=== PATIENT | female | born 1945 | race Caucasian/White ===

== ENCOUNTER 2016-05-14 06:21 | Day surgery (SDC) | payer OTHER ==
[2016-05-14 07:46] LABS: HEMATOCRIT 47.2 % (37.0-47.0); HEMOGLOBIN 15.2 g/dL (12.0-16.0); MCH 30.7 PG (27-31); MCHC 32.2 g/dL (33-37); MCV 95.4 FL (81-99); MPV 10.2 FL (7.4-10.4); RBC 4.95 XMIL (4.2-5.4)
[2016-05-14 08:01] LABS: INR 0.97; PROTIME 10.3 Seconds (9.2-11.7); PTT 26.5 Seconds (22.0-36.0)
--- NOTE | 2016-05-14 11:36 | Diag Imaging Result Document ---
PROCEDURE NAME: CT GUIDED BIOPSY LUNG - 05/14/2016 CT-GUIDED LEFT LUNG BIOPSY: COMPARISON: CT thorax with contrast from an outside facility dated 04/19/2016. FINDINGS: A preprocedural scan showed the known large suspicious mass in the left upper lobe near the apex that was seen on the very recent prior study. It is approximately stable measuring up to 4.8 x 4.1 cm axially. Severe pulmonary emphysema is again noted. The chest is essentially stable, otherwise as compared to the recent prior study. Risks, benefits, and alternatives were discussed with the patient, and informed consent was obtained. The patient was placed in a supine position and was prepped and draped in sterile fashion. Local anesthesia was achieved with 1% lidocaine solution. Using CT guidance, an 18- gauge coaxial biopsy needle system was used to obtain two 1.3-cm core biopsies and two 2.3-cm core biopsies of the left upper lobe lung mass. There were no known complications. A chest radiograph is to follow. IMPRESSION: Technically successful left upper lobe lung mass biopsy.
[2016-05-14 13:30] VITALS: BP 133/66
--- NOTE | 2016-05-15 07:25 | Diag Imaging Result Document ---
PROCEDURE NAME: CHEST-2 VIEWS - 05/14/2016 PA RADIOGRAPH OF THE CHEST 2 VIEWS: COMPARISON: No prior chest radiograph is available for comparison. FINDINGS: There is no evidence of pneumothorax status post left lung biopsy. There is a known suspicious mass in the left upper lobe that is seen on a previous CT from an outside facility. There are emphysematous changes bilaterally. There is a thin linear calcification in the right mid lung zone of doubtful significance. The lungs are grossly clear, otherwise. Cardiac silhouette and central vasculature are grossly unremarkable. IMPRESSION: 1. No evidence of pneumothorax status post left lung biopsy. 2. Known suspicious mass in the left upper lobe that was also seen on a recent CT from an outside facility.
== END 2016-05-14 13:33 | disposition home or self-care (01) ==
LOC: CT 06:21
PROVIDERS: ATTEND Internal Medicine Pulmonary Disease
DX: C34.12 Malignant neoplasm of upper lobe, left bronchus or lung (principal); J98.4 Other disorders of lung; Z79.899 Other long term (current) drug therapy; Z79.82 Long term (current) use of aspirin
CPT/HCPCS: 32405; 71020; 77012; 85027; 85610; 85730; 88305

== ENCOUNTER 2016-09-18 10:58 | Inpatient (IN) ==
[2016-09-13 12:00] LABS: HEMATOCRIT 43.7 % (37.0-47.0); HEMOGLOBIN 13.8 g/dL (12.0-16.0); MCH 30.1 PG (27-31); MCHC 31.6 g/dL (33-37); MCV 95.4 FL (81-99); MPV 9.7 FL (7.4-10.4); RBC 4.58 XMIL (4.2-5.4)
--- NOTE | 2016-09-13 12:37 | Diag Imaging Result Doc PS360 ---
CHEST-2 VIEWS - 09/13/2016 INDICATION: PAT TECHNIQUE: COMPARISON: 05/14/2016 FINDINGS: There may be slight enlargement in the left upper lobe pulmonary mass. This now measures 5.3 x 5.7 cm, previously measuring 5.1 x 4.8 cm. No new masses or infiltrates. Stable vertebroplasty changes at the lower thoracic spine, with some adjacent extra osseous cement and a small amount of cement embolized to the right midlung. IMPRESSION: Slight enlargement of the left upper lobe mass/tumor. Electronically signed by Edmond Thomas 09/13/2016 12:35 PM
[2016-09-13 12:58] LABS: AGAP 14; BUN 16 mg/dL (8-22); CALCIUM 8.6 mg/dL (8.8-10.2); CHLORIDE 96 mmol/L (98-107); COSMO 281; SODIUM 140 mmol/L (136-145); TCO2 30 mmol/L (25-35)
--- NOTE | 2016-09-13 15:22 | EKG Report ---
Test Performed on : 09/13/2016 11:13:05 AM Test Reason : PAT Blood Pressure : / mmHG Vent. Rate : 084 BPM Atrial Rate : 084 BPM P-R Int : 134 ms QRS Dur : 102 ms QT Int : 402 ms P-R-T Axes : 086 -83 046 degrees QTc Int : 475 ms Normal sinus rhythm. Biatrial enlargement Left axis deviation Pulmonary disease pattern Incomplete right bundle branch block T wave abnormality, consider anterior ischemia Prolonged QT Abnormal ECG When compared with ECG of 06-JUN-2016 07:25, Sinus rhythm. has replaced Atrial fibrillation. Vent. rate has decreased BY 89 BPM Incomplete right bundle branch block is now present Confirmed by Wei ROSAS, Janet Harding ([id number]) on 09/14/2016 1:01:24 PM
[2016-09-18] MEDS ORDERED: KEFZOL 1 GM/D5W 1 GM/50 ML IVPB ONE (11:24)
[2016-09-18] MEDS ORDERED: LR 1,000 ML ONE (11:24)
[2016-09-18] MEDS ORDERED: REGLAN ONE (11:39)
[2016-09-18] MEDS ORDERED: PEPCID ONE (11:39)
[2016-09-18] MEDS ORDERED: VALIUM ONE (11:40)
[2016-09-18] MEDS ORDERED: SENSORCAINE 0.25%/EPI 1:200,000 ONE (12:30)
[2016-09-18] MEDS ORDERED: FENTANYL ONE (13:37)
[2016-09-18] MEDS ORDERED: SODIUM CHLORIDE 0.9% ONE (14:01)
[2016-09-18] MEDS ORDERED: MARCAINE 0.25% PF ONE (14:01)
[2016-09-18] MEDS ORDERED: EXPAREL 1.3% ONE (14:11)
[2016-09-18 14:21] LABS: URINE SOURCE CATH
[2016-09-18 14:26] LABS: BILIRUBIN URINE NEGATIVE (NEGATIVE); BLOOD URINE NEGATIVE (NEGATIVE); COLOR YELLOW; GLUCOSE URINE NEGATIVE (NEGATIVE); LEUKOCYTES URINE NEGATIVE (NEGATIVE); NITRITE URINE NEGATIVE (NEGATIVE); PROTEIN URINE 200 mg/dL (NEGATIVE); TURBIDITY URINE CLEAR (CLEAR); URINE MICRO REVIEW NEEDED? YES; UROBILINOGEN URINE 2 mg/dL (NORMAL)
[2016-09-18] MEDS ORDERED: NORCURON ONE (14:41)
[2016-09-18] MEDS ORDERED: LABETALOL ONE ×2 (14:41→16:37)
[2016-09-18] MEDS ORDERED: QUELICIN (DOSE) ONE (14:41)
[2016-09-18] MEDS ORDERED: SODIUM CHLORIDE 0.9% 20 ML ONE (14:41)
[2016-09-18 14:43] LABS: UR EPITHELIAL CELLS >10 /HPF (<10); URINE BACTERIA NEGATIVE /HPF; URINE RBC <10 /HPF (<10); URINE WBC <10 /HPF (<10)
[2016-09-18] MEDS ORDERED: HURRICAINE SPRAY (DOSE) ONE (14:45)
[2016-09-18] MEDS ORDERED: VENTOLIN HFA ONE (14:47)
[2016-09-18] MEDS ORDERED: EPHEDRINE ONE (15:06)
[2016-09-18 16:26] LABS: ALLEN TEST NO; BE -1.5 mmoll (-3.0-3.0); BLOOD TYPE ARTERIAL; METHB 1.1 % (0.0-1.5); O2(CT) 17.6 mL/dL (15.0-23.0); PO2(98.6) 497 mmHg (60-100); SAMPLE BLOOD; SAO2 99.9 % (95.0-100.0); SRATE 12 BPM; THB 11.9 g/dL (11.5-17.4); TVOL 500 mL; pH(98.6) 7.26 (7.35-7.45)
[2016-09-18 16:28] LABS: DRAW SITE OTHER; MODALITY VENTILATOR
[2016-09-18 16:29] LABS: PCO2(98.6) 59 mmHg (35-45)
[2016-09-18] MEDS: DILAUDID ONE ×5 (16:39→19:11)
--- NOTE | 2016-09-18 16:49 | OPERATIVE NOTE ---
PROCEDURE DATE: 09/18/2016 PROCEDURE: Bronchoscopy; left posterolateral thoracotomy with left upper lobectomy. SURGEON: Hector Coon MD. [employer] SALES CONSULTANT: Dr. Calderon and Dr. Moses who assisted in exposure and dissection and removal of the upper lobe and closure. 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 POSTOPERATIVE DIAGNOSIS: Adenocarcinoma of the left upper lobe. DESCRIPTION OF PROCEDURE: After satisfactory general endotracheal anesthesia achieved, the flexible bronchoscope was introduced through the oral endotracheal tube. We identified the arpit. We passed the scope into the right main stem. The upper lobe, middle lobe, and lower lobe orifices were identified and appeared normal. There was a significant amount of mucus. We passed the scope into the left main stem and again the orifice to the upper lobe and lower lobe anatomy appeared normal. The patient was then switched to a double lumen tube. After that was secured and the anesthesiologist was satisfied, we then turned the patient onto her side with the left side up. The left side was then prepped and draped in a sterile fashion. We marked the skin 2 fingerbreadths below the tip of the scapula. We made a posterolateral thoracotomy incision. We used electrocautery to go through the subcutaneous tissue through the latissimus muscle through the serratus anterior muscle. We identified the 5th intercostal space and divided the intercostal muscles in the 5th intercostal space. We asked them to clamp the bronchial tube. After entering the pleural space, we then placed our rib woodworking belt sander. The mass in the upper lobe was identified. One mall adhesion was lysed going to the apex of the left pleural space. As the lung collapsed some, we were able then to began our dissection. There were quite a few nodes in the aortopulmonary window and around the apex of the lung and we took out each 1 separately and sent them as mediastinal or bronchial nodes. We incised the visceral pleura from anterior over the superior pulmonary vein over the apex of the hilum down to the fissure posteriorly. We identified an apical posterior breast. We doubly ligated with 2-0 silks proximally and then 1 distally and divided it. One of the anterior branches was somewhat torn in the dissection, and I had to actually with finger dissection, dissected down across the main pulmonary artery to allow placement of a Satinsky clamp. After that, we were able to close the tear in the pulmonary artery that actually went down to the inferior portion of the pulmonary artery. We were able to close it with a running 5-0 Prolene and upon completion of the repair we are over the takes then skate clamps off and there was hemostasis. Another anterior branch was doubly ligated proximally and distally and divided. The final posterior branch was identified and doubly ligated proximally and once distally and divided. This side then we felt had all of our arterial branches unless there was 1 more inferiorly which we did note yet. We then identified the superior pulmonary vein, dissected around it, and we were able to staple it with a TA-30 vascular stapler. Proximally and distally, we suture ligated the vein and divided it. We then were able to make a hole in where we thought the difference between the inferior the lower lobe and the upper lobe was through the medial end of the major fissure and once we were able to get through that, we introduced a ABHINAV 80 green cartridge and stapled it to complete the fissure anteriorly and medially. We found that there were no further branches from the inferior branch of the pulmonary artery to the lingula. We divided all the arterial branches as well as the superior pulmonary vein. This then left us with the bronchus. We will dissect around the superior upper lobe bronchus. We clamped it. They ended up having to ventilate the patient because of right lung simply was not ventilating well. During the case, we actually had to ventilate the left lung quite a bit. But, we clamped off the upper lobe bronchus and then they continued to ventilate the lower lung but not the upper lobe, so, we then used a TA-30 green cartridge to staple the upper lobe bronchus. We divided it and then handed off the upper lobe. We then tested the bronchial closure under saline under 40 atmospheres and it did not leak. There was some leak from the lower lung surface, so we obtained some Progel and placed it along the staple line along the small areas that might leak air, and we placed ProGEL and allowed it to sit on there for about 3 minutes while the lower lobe did not been ventilate, then resumed ventilation of the lower lobe. I then placed two 28 chest tubes, the anterior one going superiorly to the apex of the pleural space and the other one going posteriorly. We added an additional hole at 8 cm on the posterior tube. We then made 3 holes in the 5th rib and 3 holes in the 6th rib so that we could approximate these with #2 Surgidac stitches through the ribs, themselves. We passed these stitches through the ribs where the holes had been made in the ribs. We then used Exparel and injected it around the 5th rib and 6th rib throughout its extent for pain relief of the intercostal nerves. We then used a rib reapproximated to approximate the ribs and tied the #2 Tycron stitches. We proceeded to close the serosa anterior with a 1 running Polysorb. The latissimus was closed with a running #1 Polysorb. We again injected Exparel into the muscle and then the subcutaneous tissue throughout the length of the skin incision. 0 Polysorb was used in the subcutaneous fascia and the skin was closed with tara. Zero silks use to secure the chest tube at the skin level. Chest tubes were attached to the Pleur-evac. Sterile gauze dressing was then applied. She tolerated the procedure satisfactorily and then converted from a double lumen tube to a single lumen tube. We then transferred to the Intensive Care Unit to the ventilator. She tolerated procedure satisfactorily. Sent to the Intensive Care Unit in stable condition. cc: MD Albaro Luciano MD Mamoun I. Najjar, MD P. J. Reddy, MD
[2016-09-18] MEDS ORDERED: NS 1,000 ML IV SCH (17:37)
[2016-09-18] MEDS ORDERED: ZOFRAN IV PRN (17:37)
[2016-09-18 17:41] LABS: ALLEN TEST NO; BE -0.4 mmoll (-3.0-3.0); BLOOD TYPE ARTERIAL; DRAW SITE OTHER; METHB 0.8 % (0.0-1.5); MODALITY VENTILATOR; O2(CT) 16.3 mL/dL (15.0-23.0); PCO2(98.6) 51 mmHg (35-45); PO2(98.6) 113 mmHg (60-100); SAMPLE BLOOD; SAO2 100.4 % (95.0-100.0); SRATE 14 BPM; THB 11.9 g/dL (11.5-17.4); TVOL 500 mL; pH(98.6) 7.32 (7.35-7.45)
[2016-09-18] MEDS: DILAUDID IV PRN ×3 (17:58→23:47)
[2016-09-18 18:38] LABS: HEMATOCRIT 39.5 % (37.0-47.0); HEMOGLOBIN 12.6 g/dL (12.0-16.0)
--- NOTE | 2016-09-18 19:01 | Diag Imaging Result Doc PS360 ---
EXAM: CHEST-PORTABLE HISTORY: post op TECHNIQUE: AP portable at 1648 upright COMMENT: There are two chest tubes in the left hemithorax. There is an endotracheal tube with its tip slightly below the thoracic inlet. There has been left upper lobectomy since the previous study of 09/13/2016. There is some soft tissue gas laterally on the left. There is apical pleural thickening on the right which was apparently also present previously. There has been kyphoplasty in two levels in the lower thoracic spine. IMPRESSION: Postsurgical changes on the left. Electronically signed by Zaki Tolliver 09/18/2016 6:58 PM
[2016-09-18] MEDS ORDERED: LABETALOL IV PRN (19:02)
[2016-09-18] MEDS ORDERED: DILAUDID IV ONE (19:09)
[2016-09-18] MEDS ORDERED: APRESOLINE IV ONE (19:10)
[2016-09-18] MEDS ORDERED: DUONEB (A & A) INH SCH (19:30)
[2016-09-18] MEDS: MUCOMYST 20% INH SCH (19:33)
[2016-09-18] MEDS: DUONEB (A & A) INH SCH ×2 (19:33→22:43)
[2016-09-18] MEDS ORDERED: DIPRIVAN 1% 1,000 MG/100 ML BOTTLE IV SCH (20:10)
[2016-09-18] MEDS: SODIUM CHLORIDE 0.9% INJ SCH (20:32)
[2016-09-18] MEDS: PROTONIX IV SCH (20:32)
[2016-09-18] MEDS: KEFZOL 1 GM/D5W 1 GM/50 ML IVPB IV SCH (20:35)
[2016-09-18] MEDS ORDERED: PERIDEX MT SCH (21:00)
[2016-09-18 21:03] LABS: CK INDEX 1.7 (0.0-2.5); CK-MB 8.66 ng/mL (0.0-5.0)
[2016-09-19] MEDS: DILAUDID IV PRN ×10 (01:58→23:40)
[2016-09-19] MEDS: DUONEB (A & A) INH SCH ×6 (03:48→23:26)
[2016-09-19 04:42] LABS: ALLEN TEST YES; BE -1.6 mmoll (-3.0-3.0); BLOOD TYPE ARTERIAL; DRAW SITE L RADIAL; METHB 1.1 % (0.0-1.5); O2(CT) 18.6 mL/dL (15.0-23.0); PCO2(98.6) 47 mmHg (35-45); PO2(98.6) 88 mmHg (60-100); SAMPLE BLOOD; SAO2 97.8 % (95.0-100.0); SRATE 14 BPM; THB 13.9 g/dL (11.5-17.4); TVOL 500 mL; pH(98.6) 7.33 (7.35-7.45)
[2016-09-19 04:44] LABS: MODALITY VENTILATOR
[2016-09-19] MEDS: KEFZOL 1 GM/D5W 1 GM/50 ML IVPB IV SCH ×3 (04:57→22:03)
[2016-09-19 05:38] LABS: MANUAL DIFF NEEDED? NO
[2016-09-19] MEDS: LOVENOX SUBQ SCH (05:45)
[2016-09-19 06:06] LABS: BASO% 0.1 % (0.0-0.8); EOS# 0.02 X1000 (0.0-0.7); EOS% 0.2 % (0.0-10.0); HEMATOCRIT 32.6 % (37.0-47.0); HEMOGLOBIN 10.2 g/dL (12.0-16.0); IMM GRAN# 0.02 X1000 (0.0-0.04); IMM GRAN% 0.2 % (0.0-0.5); LYMPH# 1.16 X1000 (1.2-3.4); LYMPH% 13.4 % (20.5-51.1); MCH 28.5 PG (27-31); MCHC 31.3 g/dL (33-37); MCV 91.1 FL (81-99); MONO# 0.51 X1000 (0.11-0.59); MONO% 5.9 % (1.7-9.3); MPV 9.4 FL (7.4-10.4); NEUT% 80.2 % (42.2-75.2); PLT 293 X1000 (130-400); RBC 3.58 XMIL (4.2-5.4)
[2016-09-19] MEDS ORDERED: SODIUM CHLORIDE 0.9% INJ PRN (06:17)
[2016-09-19] MEDS: SYNTHROID IV SCH (06:27)
[2016-09-19] MEDS ORDERED: SYNTHROID PO SCH (07:00)
--- NOTE | 2016-09-19 07:23 | Diag Imaging Result Doc PS360 ---
CHEST-1 VIEW - 09/19/2016 INDICATION: SOB TECHNIQUE: COMPARISON: 09/18/2016 FINDINGS: Stable endotracheal tube in good position. Stable double left chest tubes. Stable volume loss on the left side compatible with probable lobectomy. No pneumothorax. No large effusion. No new infiltrates. IMPRESSION: No complication or change from prior. Electronically signed by Edmond Thomas 09/19/2016 7:21 AM
[2016-09-19 07:24] LABS: CK-MB 5.46 ng/mL (0.0-5.0)
[2016-09-19 07:25] LABS: AGAP 11; BUN 12 mg/dL (8-22); CHLORIDE 112 mmol/L (98-107); COSMO 280; POTASSIUM 3.8 mmol/L (3.5-5.1); SODIUM 141 mmol/L (136-145); TCO2 18 mmol/L (25-35)
[2016-09-19 07:34] LABS: CALCIUM 5.7 mg/dL (8.8-10.2)
[2016-09-19] MEDS: MUCOMYST 20% INH SCH ×2 (08:01→19:40)
[2016-09-19] MEDS ORDERED: CALCIUM GLUCONATE 2 GM in NS 100 ML IV ONE (09:00)
[2016-09-19 09:13] LABS: ALLEN TEST YES; BLOOD TYPE ARTERIAL; DRAW SITE L RADIAL; METHB 1.3 % (0.0-1.5); O2(CT) 16.9 mL/dL (15.0-23.0); PCO2(98.6) 40 mmHg (35-45); PO2(98.6) 109 mmHg (60-100); SAMPLE BLOOD; THB 12.4 g/dL (11.5-17.4)
[2016-09-19 09:15] LABS: MODALITY VENTILATOR
[2016-09-19] MEDS ORDERED: CARDIZEM IV ONE ×2 (11:06→11:39)
--- NOTE | 2016-09-19 11:33 | CONSULTATION ---
PROCEDURE DATE: 09/19/2016 REASON FOR CONSULTATION: Medical management. PHYSICIAN ASKING FOR CONSULT: Hector Coon MD HISTORY OF PRESENT ILLNESS: Ms. Grover is a 71-year-old female, who was admitted yesterday to the hospital for surgery and underwent left upper lobectomy for lung adenocarcinoma. She has been on ventilator since then. She was actually diagnosed as having left lung mass in early April of this year, but she was reluctant to undergo any surgery. After being cleared by pulmonary and cardiology, she ultimately agreed to have the resection of left upper lobe with adrenal carcinoma mass done. Currently, she is on ventilator and is not able to communicate, since she is on also on a propofol drip. PAST MEDICAL HISTORY: 1. Chronic obstructive pulmonary disease. 2. Hypothyroidism. 3. Hypertension. 4. Dyslipidemia. 5. Anxiety disorder. 6. Osteoporosis. 7. Carotid atherosclerosis. 8. Vitamin B12 deficiency. 9. Vitamin D deficiency. 10. History of stroke in the past. PAST SURGICAL HISTORY: 1. Bilateral carotid artery surgery. 2. Complete hysterectomy. 3. Right breast lumpectomy. 4. Left rotator cuff surgery. FAMILY HISTORY: No family history has been reported. SOCIAL HISTORY: The patient has been smoking 1 pack of cigarettes for most of her life. She states that she started 1 pack of cigarettes per day in 1972. ALLERGIES: No known drug allergies have been reported. CURRENT MEDICATIONS: 1. Enoxaparin 40 mg subcutaneously once daily. 2. Labetalol 10 mg IV as needed for hypertension. 3. Levothyroxine 150 mcg orally once daily. 4. Protonix 40 mg IV q.24 hours. 5. Propofol IV drip. 6. Dilaudid 1 mg IV q.4 hours as needed for pain. 7. Cefazolin 1 g IV q.8 hours. 8. Zofran 4 mg IV q.4 hours as needed for nausea. 9. Percocet 10 mg orally every 4 hours as needed for pain. PHYSICAL EXAMINATION: General Appearance: She is on a ventilator and is not able to communicate. Vital Signs: Blood pressure is 102/65, heart rate is 94 per minute, and pulse ox is 97%. Currently she is on 40% oxygen. HEENT: No acute abnormality noted. Neck: Noted to have no thyromegaly. Respiratory System: Bilateral lung air entry is good without any rales or rhonchi present on auscultation. Cardiovascular System: First and second heart sounds are audible without any murmurs. There is no pedal edema. Gastrointestinal System: Abdomen does not appear to be distended. It is soft and no viscera are palpable. Bowel sounds are noted to be somewhat hypoactive. Musculoskeletal System: No deformities are present. Range of motion in most of the joints somewhat limited secondary to osteoarthritis. Neurologic: No focal deficits are noted. Skin: Skin is without any rash Genitourinary: Deferred. DIAGNOSTIC DATA: CBC shows a hemoglobin of 10.2 and hematocrit 32.6. In comparison, her hemoglobin and hematocrit were 13.8 and 43.7 on September 13, 2016. We know that she lost about 100 mL of blood during surgery and we are following this drop in hemoglobin and hematocrit. Chemistry shows calcium levels of 5.7, CPK of 563, and 2 sets of troponin are negative. Urinalysis is nondiagnostic and ABG obtained this morning showed pH of 7.33, pCO2 of 47, and pO2 88 on 40% of oxygen. Chest x-ray obtained this morning shows endotracheal tube to be in good position, but no acute complications. IMPRESSION: 1. Lung adenocarcinoma with status post left upper lobectomy. 2. Anemia secondary to acute blood loss. 3. Hypocalcemia. 4. Respiratory failure with chronic obstructive pulmonary disease. 5. Hypertension. 6. Hypothyroidism. PLAN: I am going to change her levothyroxine to IV 75 mcg daily since she is NPO and has been intubated. Would follow and monitor her hemoglobin and hematocrit and transfuse as needed. Her vancomycin is being followed by Dr. Wheeler and her blood pressure has been stable at this time. I am going to give her calcium gluconate IV because of her hypocalcemia and monitor her electrolytes. I would continue VT prophylaxis with enoxaparin. Further recommendations will be given as per hospital course. Thank you for letting me be part of the care of Ms. Grover. cc: MD Hector Darby MD
[2016-09-19] MEDS: SODIUM BICARBONATE 8.4% 75 MEQ in D5W 1,000 ML IV SCH (11:35)
[2016-09-19] MEDS ORDERED: NEO-SYNEPHRINE IV ONE (11:36)
[2016-09-19] MEDS ORDERED: CARDIZEM 100 MG/NS 100 MG/100 ML IVPB IV SCH (11:37)
[2016-09-19] MEDS: NEO-SYNEPHRINE 50 MG in NS 250 ML IV SCH (11:46)
--- NOTE | 2016-09-19 12:56 | EKG Report ---
Test Performed on : 09/19/2016 11:12:06 AM Test Reason : TACHYARRYTHMIA Blood Pressure : / mmHG Vent. Rate : 175 BPM Atrial Rate : 178 BPM P-R Int : 000 ms QRS Dur : 086 ms QT Int : 270 ms P-R-T Axes : 000 111 -45 degrees QTc Int : 460 ms Atrial fibrillation. with rapid ventricular response. Right axis deviation Right ventricular hypertrophy Marked ST abnormality, possible inferior subendocardial injury Abnormal ECG When compared with ECG of 13-SEP-2016 11:13, Atrial fibrillation. has replaced Sinus rhythm. Vent. rate has increased BY 91 BPM Incomplete right bundle branch block is no longer present Confirmed by Wei ROSAS, Janet Harding ([id number]) on 09/19/2016 1:33:17 PM
--- NOTE | 2016-09-19 13:07 | CONSULTATION ---
DATE OF CONSULTATION: 09/19/2016 REASON FOR CONSULTATION: Status post thoracotomy for lung cancer. HISTORY OF PRESENT ILLNESS: Ms. Grover is a 71-year-old white female with COPD, ongoing tobacco use, peripheral vascular disease, who underwent CT-guided biopsy of a large left upper lobe mass in May which revealed an adenocarcinoma with neuroendocrine differentiation. The patient initially decided against surgery and was referred to Radiation Oncology and to Hematology/Oncology. By report, both specialist recommended that she undergo surgical resection. Left upper lobectomy was performed yesterday evening. Pulmonary consultation was requested for ventilator management. PAST MEDICAL HISTORY: 1. COPD with ongoing tobacco use. PFTs are not immediately available for review. 2. Status post bilateral carotid endarterectomy with prior transient ischemic attack. 3. Hypertension. 4. Dyslipidemia. 5. Hypothyroidism. 6. Status post left shoulder surgery. SOCIAL HISTORY: Ongoing tobacco use. The patient drinks 3-5 beers a day 5 times per week. FAMILY HISTORY: Notable for arthritis. REVIEW OF SYSTEMS: Cannot be obtained. PHYSICAL EXAMINATION: General: Reveals a well-developed, well-nourished, white female on mechanical ventilation. Vital signs: Blood pressure 95/63, heart rate 103, respiration rate 14, oxygen saturation 97%. HEENT: Pupils are equal and reactive. Oropharynx evaluation is limited with endotracheal tube in place. Neck: Supple. Chest: Reveals chest tubes in the left hemithorax. No significant air leak is identified. Cardiac Exam: Increased rate. Regular rhythm. Abdomen: Soft without hepatosplenomegaly. Extremities: Without edema. LABORATORIES: Chest x-ray reveals post surgical changes on the left with 2 chest tubes identified. There is volume loss. No pneumothorax identified. White blood count 8.63, hemoglobin 10.2, platelet count 293,000. Chemistries: Sodium 141, potassium 3.8, chloride 112, serum bicarbonate 18, anion gap of 11, BUN 12, creatinine 0.5. Arterial blood gas on mechanical ventilation pH 7.33, pCO2 of 47, PO2 of 88. IMPRESSION: This is a 71-year-old with COPD, lung cancer, ongoing tobacco use, frequent alcohol use with mild hypercapnic respiratory failure and hypoxemic respiratory failure following surgery for a left upper lobe lung cancer. RECOMMENDATIONS: 1. Continue bronchodilators with mucolytic as you are doing. 2. Spontaneous breathing trial to evaluate extubation potential. 3. Smoking cessation will be recommended. 4. With alcohol consumption, will follow for alcohol withdrawal. 5. Additional recommendations pending hospital course. cc: MD Hector Cardona MD Adnan A. Seljuki, MD
[2016-09-19 13:12] LABS: AGAP 14; BUN 14 mg/dL (8-22); CALCIUM 8.3 mg/dL (8.8-10.2); CHLORIDE 101 mmol/L (98-107); COSMO 273; SODIUM 136 mmol/L (136-145); TCO2 21 mmol/L (25-35)
[2016-09-19 13:13] LABS: CK INDEX 0.7 (0.0-2.5); CK-MB 7.82 ng/mL (0.0-5.0)
[2016-09-19] MEDS ORDERED: LOPRESSOR IV PRN (14:49)
[2016-09-19] MEDS ORDERED: CORDARONE IV ONE (14:51)
[2016-09-19] MEDS ORDERED: CORDARONE 360 MG/D5W 360 MG/200 ML IV.SOLN IV ONE (14:52)
[2016-09-19] MEDS ORDERED: CORDARONE 150 MG/D5W 150 MG/100 ML IV.SOLN IV ONE (15:15)
--- NOTE | 2016-09-19 15:58 | CONSULTATION ---
DATE OF CONSULTATION: 09/19/2016 CARDIOLOGY CONSULT: IMPRESSION: 1. Postoperative atrial fibrillation with rapid ventricular rate. 2. Status post resection of lung cancer from left upper lobe (left upper lobectomy). 3. Atherosclerotic carotid disease with bilateral carotid endarterectomies over the past several months. 4. Hypertension. 5. Chronic obstructive pulmonary disease. 6. Previous cerebrovascular accident. RECOMMENDATIONS: 1. Suppress atrial fibrillation with amiodarone intravenously. 2. Utilize metoprolol intravenously on an as needed basis for sustained tachycardia despite amiodarone. 3. Discontinue intravenous Cardizem as this is done to minimize tendency for hypotension. HISTORY: This is a 71-year-old white female with past history of COPD, hypertension, and atherosclerotic carotid disease is now status post recent left upper lobectomy for lung cancer. She was extubated this morning. About an hour after extubation she developed atrial fibrillation with rapid ventricular rate. Intravenous Cardizem was started to blunt tachycardia. She was also put on some intravenous Pillo-Synephrine to support her blood pressure. She is without angina. She is still somewhat groggy. PAST MEDICAL HISTORY: 1. Chronic obstructive pulmonary disease. 2. Hypertension. 3. Non-small cell lung cancer left upper lobe status post resection this admission. 4. Hypothyroidism. 5. Hyperlipidemia. 6. Anxiety disorder. 7. Previous cerebrovascular accident. 8. Atherosclerotic carotid disease with bilateral carotid endarterectomies over the last several months. 9. Osteoporosis. PAST SURGICAL HISTORY: Also includes: 1. Hysterectomy. 2. Right breast lumpectomy. 3. Left rotator cuff surgery. ALLERGIES: She has no known drug allergies. MEDICATIONS: As listed. SOCIAL HISTORY: She has history of smoking. She does not use alcohol. FAMILY HISTORY: Noncontributory. REVIEW OF SYSTEMS: Not reliably obtainable given patient's present status. PHYSICAL EXAMINATION: General Appearance: An elderly white female in no apparent distress. Vital Signs: Heart rate 120 and irregular with ECG monitor showing atrial fibrillation. Patient converted to sinus rhythm during encounter. Blood pressure 96/67. Oxygen saturation 94%. HEENT Exam: Extraocular movements intact. Mucous membranes are moist. Neck: Supple without jugular distention. Chest: Auscultation of chest reveals coarse breath sounds bilaterally. There are no rales. Cardiac Exam: Reveals a regular rate and rhythm without appreciable murmur or gallop. Abdomen: Soft, nontender. Extremities: Without edema. Neurologic Exam: Reveals her to be somewhat groggy, but responsive. She moves all 4 extremities equally well. DIAGNOSTIC DATA: EKG demonstrates atrial fibrillation with rapid ventricular rate, right axis deviation, right bundle branch block, and possible right ventricular hypertrophy. Diffuse ST and T-wave abnormality demonstrated, probably rate related. Recent echocardiography several months ago indicates normal left ventricular ejection fraction. Mitral regurgitation demonstrated. cc: MD Hector Flores MD
[2016-09-19] MEDS: PROTONIX IV SCH (19:27)
[2016-09-19] MEDS: SODIUM CHLORIDE 0.9% INJ SCH (19:27)
[2016-09-19] MEDS ORDERED: CORDARONE 540 MG in D5W 289.2 ML IV ONE (20:00)
[2016-09-20] MEDS: DILAUDID IV PRN ×7 (01:42→23:37)
[2016-09-20] MEDS: SODIUM BICARBONATE 8.4% 75 MEQ in D5W 1,000 ML IV SCH (01:42)
[2016-09-20] MEDS: DUONEB (A & A) INH SCH ×6 (03:14→23:40)
[2016-09-20] MEDS: KEFZOL 1 GM/D5W 1 GM/50 ML IVPB IV SCH ×3 (04:20→20:09)
[2016-09-20] MEDS: PERCOCET-10 PO PRN ×3 (04:24→22:35)
[2016-09-20 04:39] LABS: ALLEN TEST YES; BE 3.6 mmoll (-3.0-3.0); BLOOD TYPE ARTERIAL; DRAW SITE R RADIAL; METHB 0.9 % (0.0-1.5); PO2(98.6) 67 mmHg (60-100); SAMPLE BLOOD; SAO2 96.1 % (95.0-100.0); THB 10.6 g/dL (11.5-17.4); pH(98.6) 7.36 (7.35-7.45)
[2016-09-20 04:40] LABS: MODALITY CANNULA; PCO2(98.6) 53 mmHg (35-45)
[2016-09-20 05:33] LABS: MANUAL DIFF NEEDED? NO
[2016-09-20 05:49] LABS: BASO% 0.2 % (0.0-0.8); EOS# 0.09 X1000 (0.0-0.7); EOS% 0.8 % (0.0-10.0); HEMATOCRIT 38.5 % (37.0-47.0); HEMOGLOBIN 12.3 g/dL (12.0-16.0); IMM GRAN# 0.02 X1000 (0.0-0.04); IMM GRAN% 0.2 % (0.0-0.5); LYMPH# 1.33 X1000 (1.2-3.4); LYMPH% 11.5 % (20.5-51.1); MCH 28.9 PG (27-31); MCHC 31.9 g/dL (33-37); MCV 90.4 FL (81-99); MONO# 0.78 X1000 (0.11-0.59); MONO% 6.7 % (1.7-9.3); MPV 10.2 FL (7.4-10.4); NEUT% 80.6 % (42.2-75.2); PLT 327 X1000 (130-400); RBC 4.26 XMIL (4.2-5.4)
[2016-09-20 06:10] LABS: AGAP 10; BUN 10 mg/dL (8-22); CHLORIDE 98 mmol/L (98-107); COSMO 272; SODIUM 136 mmol/L (136-145); TCO2 28 mmol/L (25-35)
[2016-09-20] MEDS: SYNTHROID IV SCH (06:16)
[2016-09-20] MEDS: LOVENOX SUBQ SCH (06:17)
[2016-09-20] MEDS: SODIUM CHLORIDE 0.9% INJ SCH (06:17)
[2016-09-20] MEDS: SYNTHROID PO SCH (07:12)
--- NOTE | 2016-09-20 07:28 | Diag Imaging Result Doc PS360 ---
EXAM: CHEST-1 VIEW HISTORY: SOB TECHNIQUE: AP portable erect chest at 0545 COMMENT: The two chest tubes remain in the left hemithorax. There is greater volume loss in the left than on the previous study of 09/19/2016. There is hazy opacity developing over the right lower lobe which was not apparent at the time the previous study. The inspiration is less optimal however. IMPRESSION: Pulmonary edema which has worsened since the previous study of 09/19/2016. Electronically signed by Zaki Tolliver 09/20/2016 7:25 AM
[2016-09-20] MEDS: MUCOMYST 20% INH SCH ×2 (07:50→19:35)
[2016-09-20] MEDS ORDERED: LASIX IV ONE (09:18)
--- NOTE | 2016-09-20 09:39 | EKG Report ---
Test Performed on : 09/20/2016 08:14:16 AM Test Reason : Afib Blood Pressure : / mmHG Vent. Rate : 085 BPM Atrial Rate : 085 BPM P-R Int : 140 ms QRS Dur : 108 ms QT Int : 388 ms P-R-T Axes : 090 105 029 degrees QTc Int : 461 ms Suspect arm lead reversal, interpretation assumes no reversal Normal sinus rhythm. Right bundle branch block Abnormal ECG When compared with ECG of 19-SEP-2016 11:13, (Unconfirmed) Previous ECG has undetermined rhythm, needs review Right bundle branch block is now present Confirmed by Janet Carvajal MD ([id number]) on 09/20/2016 1:07:56 PM
[2016-09-20] MEDS: CORDARONE PO SCH ×2 (13:07→17:36)
--- NOTE | 2016-09-20 13:16 | PROGRESS NOTE ---
DATE: 09/20/2016 SUBJECTIVE: Patient continues with some postoperative soreness in left posterior chest. She has no cardiovascular symptoms. She continues in sinus rhythm on intravenous amiodarone. OBJECTIVE: Vital Signs: Blood pressure 113/68, heart rate 87 and regular with ECG monitor showing sinus rhythm. Chest: Clear to auscultation. Cardiac Exam: Reveals a regular rate and rhythm without appreciable murmur or gallop. There is no evidence of peripheral edema. IMPRESSION: 1. Postoperative atrial fibrillation. Patient continues in sinus rhythm on intravenous amiodarone. 2. Status post resection of non-small cell lung cancer from the left upper lobe. 3. Atherosclerotic carotid disease with bilateral carotid endarterectomies over the last several months. 4. Hypertension. 5. Chronic obstructive pulmonary disease. 6. Previous cerebrovascular accident. RECOMMENDATIONS: Continue to suppress atrial fibrillation with amiodarone initially. Transition to oral amiodarone. cc: MD Hector Flores MD
[2016-09-20] MEDS ORDERED: CORDARONE 540 MG in D5W 289.2 ML IV ONE (19:59)
[2016-09-20] MEDS ORDERED: SODIUM BICARBONATE 8.4% 75 MEQ in D5W 1,000 ML IV SCH (21:00)
[2016-09-20] MEDS: NEO-SYNEPHRINE 50 MG in NS 250 ML IV SCH (21:56)
[2016-09-21] MEDS: DUONEB (A & A) INH SCH ×6 (03:50→23:19)
[2016-09-21] MEDS: KEFZOL 1 GM/D5W 1 GM/50 ML IVPB IV SCH ×3 (04:00→20:19)
[2016-09-21 04:21] LABS: ALLEN TEST YES; BE 9.2 mmoll (-3.0-3.0); BLOOD TYPE ARTERIAL; DRAW SITE R RADIAL; METHB 0.9 % (0.0-1.5); O2(CT) 17.1 mL/dL (15.0-23.0); PO2(98.6) 75 mmHg (60-100); SAMPLE BLOOD; SAO2 96.7 % (95.0-100.0); THB 12.9 g/dL (11.5-17.4); pH(98.6) 7.39 (7.35-7.45)
[2016-09-21 04:23] LABS: MODALITY BI PAP
[2016-09-21 04:24] LABS: PCO2(98.6) 60 mmHg (35-45)
[2016-09-21] MEDS: PERCOCET-10 PO PRN ×5 (04:25→21:08)
[2016-09-21 04:38] LABS: BASO% 0.3 % (0.0-0.8); EOS# 0.22 X1000 (0.0-0.7); EOS% 2.2 % (0.0-10.0); HEMATOCRIT 39.5 % (37.0-47.0); HEMOGLOBIN 12.6 g/dL (12.0-16.0); LYMPH# 1.06 X1000 (1.2-3.4); LYMPH% 10.6 % (20.5-51.1); MANUAL DIFF NEEDED? NO; MCH 28.8 PG (27-31); MCHC 31.9 g/dL (33-37); MCV 90.4 FL (81-99); MONO# 0.72 X1000 (0.11-0.59); MONO% 7.2 % (1.7-9.3); MPV 9.9 FL (7.4-10.4); NEUT% 79.7 % (42.2-75.2); PLT 375 X1000 (130-400); RBC 4.37 XMIL (4.2-5.4)
[2016-09-21 04:57] LABS: MAGNESIUM 1.7 mg/dL (1.5-2.7)
[2016-09-21] MEDS: LOVENOX SUBQ SCH (05:00)
[2016-09-21] MEDS: DILAUDID IV PRN ×5 (05:28→22:14)
[2016-09-21 05:31] LABS: AGAP 8; BUN 12 mg/dL (8-22); CALCIUM 8.1 mg/dL (8.8-10.2); CHLORIDE 95 mmol/L (98-107); COSMO 269; POTASSIUM 3.8 mmol/L (3.5-5.1); SODIUM 134 mmol/L (136-145); TCO2 31 mmol/L (25-35)
[2016-09-21] MEDS: SYNTHROID PO SCH (06:03)
[2016-09-21] MEDS: PRILOSEC PO SCH (06:03)
--- NOTE | 2016-09-21 07:16 | Diag Imaging Result Doc PS360 ---
EXAM: CHEST-1 VIEW INDICATION: SOB TECHNIQUE: One view COMPARISON: 09/20/2016 FINDINGS: Dual left chest tubes are in stable positions. There is perhaps a slight increase in volume loss as compared to the previous study on the left. The hazy opacity at the right lung base has improved. No other new consolidations are appreciated. Cardiac silhouette is stable. IMPRESSION: 1.Volume loss at the left lung base appears slightly worse than the previous study. 2.Opacity at the right lung base is improved. Electronically signed by Song Ramirez 09/21/2016 7:14 AM
--- NOTE | 2016-09-21 07:38 | EKG Report ---
Test Performed on : 09/20/2016 7:37:48 PM Test Reason : INCREASED HR Blood Pressure : / mmHG Vent. Rate : 148 BPM Atrial Rate : 150 BPM P-R Int : 000 ms QRS Dur : 120 ms QT Int : 346 ms P-R-T Axes : 000 127 -16 degrees QTc Int : 543 ms Atrial fibrillation. with rapid ventricular response. with premature ventricular or aberrantly condu cted complexes. Right bundle branch block T wave abnormality, consider inferolateral ischemia Abnormal ECG When compared with ECG of 20-SEP-2016 08:14, Atrial fibrillation. has replaced Sinus rhythm. Vent. rate has increased BY [address] now depressed in Anterior leads Inverted T waves have replaced nonspecific T wave abnormality in Anterior leads Confirmed by Janet Carvajal MD ([id number]) on 10/09/2016 1:15:48 PM
[2016-09-21] MEDS: MUCOMYST 20% INH SCH ×2 (07:58→19:28)
[2016-09-21] MEDS ORDERED: LASIX IV ONE (08:14)
[2016-09-21] MEDS: CORDARONE PO SCH (17:01)
--- NOTE | 2016-09-21 18:54 | PROGRESS NOTE ---
DATE: 09/21/2016 SUBJECTIVE: Patient continues without angina or dyspnea. She has typical postoperative chest soreness. She had some recurrence of atrial fibrillation last night and intravenous amiodarone was resumed. OBJECTIVE: Vital Signs: Blood pressure 100/60, heart rate 75 and regular with ECG monitor showing sinus rhythm. Oxygen saturation 94% on nasal cannula oxygen. Chest: Auscultation of the chest reveals a few faint expiratory wheezes. Cardiac Exam: Reveals a regular rate and rhythm without appreciable murmur or gallop. There is no evidence of peripheral edema. IMPRESSION: 1. Postoperative atrial fibrillation. Patient currently in sinus rhythm on amiodarone. 2. Status post resection non-small cell lung cancer from left upper lobe. 3. Atherosclerotic carotid disease with bilateral carotid endarterectomies over the last several months. 4. Hypertension. 5. Chronic obstructive pulmonary disease. 6. Prior cerebrovascular accident. RECOMMENDATIONS: Continue to suppress atrial fibrillation with amiodarone. Will again try to transition to oral amiodarone. cc: MD Hector Flores MD
[2016-09-22] MEDS: DUONEB (A & A) INH SCH ×4 (03:34→16:00)
[2016-09-22] MEDS: DILAUDID IV PRN ×6 (03:47→23:07)
[2016-09-22] MEDS: KEFZOL 1 GM/D5W 1 GM/50 ML IVPB IV SCH (04:15)
[2016-09-22 04:39] LABS: ALLEN TEST YES; BE 11.8 mmoll (-3.0-3.0); BLOOD TYPE ARTERIAL; DRAW SITE R RADIAL; METHB 1.1 % (0.0-1.5); O2(CT) 16.7 mL/dL (15.0-23.0); PO2(98.6) 71 mmHg (60-100); SAMPLE BLOOD; SAO2 97.2 % (95.0-100.0); THB 12.6 g/dL (11.5-17.4); pH(98.6) 7.38 (7.35-7.45)
[2016-09-22 04:41] LABS: MODALITY CANNULA; PCO2(98.6) 67 mmHg (35-45)
[2016-09-22 05:20] LABS: MANUAL DIFF NEEDED? NO
[2016-09-22] MEDS: PERCOCET-10 PO PRN ×4 (05:20→21:05)
[2016-09-22 05:24] LABS: BASO% 0.5 % (0.0-0.8); EOS# 0.21 X1000 (0.0-0.7); EOS% 2.7 % (0.0-10.0); HEMATOCRIT 40.6 % (37.0-47.0); HEMOGLOBIN 12.6 g/dL (12.0-16.0); LYMPH# 1.45 X1000 (1.2-3.4); LYMPH% 18.9 % (20.5-51.1); MCH 28.4 PG (27-31); MCV 91.4 FL (81-99); MONO# 0.89 X1000 (0.11-0.59); MONO% 11.6 % (1.7-9.3); NEUT% 66.3 % (42.2-75.2); PLT 385 X1000 (130-400); RBC 4.44 XMIL (4.2-5.4)
[2016-09-22 05:54] LABS: AGAP 10; BUN 14 mg/dL (8-22); CALCIUM 8.5 mg/dL (8.8-10.2); CHLORIDE 93 mmol/L (98-107); COSMO 273; POTASSIUM 3.7 mmol/L (3.5-5.1); SODIUM 136 mmol/L (136-145); TCO2 33 mmol/L (25-35)
[2016-09-22] MEDS: LOVENOX SUBQ SCH (06:22)
[2016-09-22] MEDS: SYNTHROID PO SCH (06:23)
[2016-09-22] MEDS: PRILOSEC PO SCH (06:23)
[2016-09-22] MEDS: CORDARONE PO SCH ×3 (07:37→16:03)
--- NOTE | 2016-09-22 07:42 | Diag Imaging Result Doc PS360 ---
EXAM: CHEST-1 VIEW HISTORY: SOB TECHNIQUE: Portable COMPARISON: 09/21/2016 FINDINGS: No change in the two left-sided chest tubes or in the lateral skin tara. Only a small portion of the left hemithorax is aerated superiorly. The right lung is well expanded. Mild increased interstitial markings may represent mild pulmonary edema. The mediastinum is shifted to the left. IMPRESSION: Stable chest. Electronically signed by Ihsan Riddle 09/22/2016 7:40 AM
[2016-09-22] MEDS: MUCOMYST 20% INH SCH (07:59)
--- NOTE | 2016-09-22 08:15 | PROGRESS NOTE ---
DATE: 09/22/2016 SUBJECTIVE: The patient reports some pain. Nursing staff reports no major issues. She is off her amiodarone drip. She is off Pillo-Synephrine. OBJECTIVE: Vital Signs: Patient is currently afebrile. Her vital signs are stable. Her heart rate looks like normal sinus rhythm at this moment. General exam: No acute distress. Cardiovascular: Regular rate and rhythm. Lungs: The chest tube is in place. There is an air leak noted to one of the chest tubes. It is only with deep cough. She has serosanguineous output from both chest tubes. IMAGING: Chest x-ray reviewed. She does have what looks like worsening consolidation on the left side with continued shift and volume loss on the left side, which appears overall worsening from previous studies, but official chest x-ray is pending. ASSESSMENT AND PLAN: A 71-year-old female, status post left thoracotomy with resection of left upper lobe. 1. Postoperative state at this time. Patient will need to continue with chest tube in her thorax. One has an air leak. She does have continued volume loss on that side. We will need to continue incentive spirometer and breathing treatments on the patient and encourage her to lay flat which she is not doing. May need to set the patient up and try to get her to change the position of her lungs to try to aerate better. Pulmonology is following. We will continue current treatment. cc: MD Hector Shields MD
--- NOTE | 2016-09-22 10:30 | PROGRESS NOTE ---
DATE: 09/22/2016 CHIEF COMPLAINT: Right now pain in the left chest and irregular heart beat. SUBJECTIVE: Ms. Grover continues to be bothered by the chest tube. The pain is pleuritic. She has maintained sinus rhythm for the past 24 hours. Otherwise no changes. OBJECTIVE: Blood pressure is 115/84, temperature 98.8, pulse 91, respirations 14. She is awake and alert, sitting upright, watching TV. She is not in any distress, but she is in pain. HEENT is unremarkable. Chest: Clear in the right lung. Left lung is somewhat diminished. Heart sounds are regular and rhythmic. I do not hear any definite gallop or murmur. Her abdomen is soft, nontender. Her extremities showed no edema. Neurologic: Follows commands. Moves all 4 extremities. DIAGNOSTIC DATA: Her blood work today showed hemoglobin 12.6, platelet count 385,000, white count 7690. Her blood gases showed pH of 7.38, pCO2 of 67, pO2 is 71. Her sodium is 136, potassium 3.7, BUN is 14, creatinine 0.7. A chest x-ray has been done today, and it shows stable findings with a small portion of the left hemithorax aerated superiorly. The right lung is well expanded. Mild increased interstitial markings, may represent mild pulmonary edema. Her telemetry shows sinus rhythm. IMPRESSION: 1. The patient presented to the hospital for elective thoracotomy and resection of a malignant lesion of the left upper lobe. She has adenocarcinoma of the left upper lobe. 2. Paroxysmal atrial fibrillation which has converted successfully to normal sinus rhythm. 3. History of chronic obstructive pulmonary disease. 4. History of hypertension. 5. History of previous stroke. RECOMMENDATIONS: At this point in time, we will continue administering amiodarone to maintain sinus rhythm. Upon discharge, the patient will probably require long term acute care registered nurse anticoagulation to minimize risk of a stroke. Thank you again for the opportunity to participate in her evaluation. Best regards. cc: MD Hector Rodriguez MD
[2016-09-22] MEDS: MIRALAX PO SCH (11:01)
[2016-09-22] MEDS: LEVAQUIN 750 MG/D5W 750 MG/150 ML IVPB IV SCH (12:35)
[2016-09-22] MEDS: MERREM 1 GM in NS 50 ML IV SCH ×2 (14:25→21:05)
--- NOTE | 2016-09-22 18:31 | PROGRESS NOTE ---
DATE: 09/22/2016 SUBJECTIVE: Patient without any new complaints. States that she is hurting but she did just receive some pain medication. PHYSICAL: Temp 98 degrees, pulse 84, respiratory 17, BP 95/50, sat 92% on 4 L.General: Patient is awake, alert. She is in no respiratory distress but she is in obvious pain. HEENT: Normocephalic, atraumatic. DOM. Neck: Supple. CV: Regular rate. Chest: Clear. Diminished on the left. Abdomen: Soft, nontender. Extremities: Moves all extremities without edema. ASSESSMENT: 1. Adenocarcinoma left upper lobe status post elective thoracotomy and resection. 2. Paroxysmal atrial fibrillation currently in sinus. 3. Pain control. 4. Hypertension. 5. Chronic obstructive pulmonary disease. 6. High cholesterol. 7. Hypothyroidism. PLAN: We will continue current orders. Will continue pain control. BiPAP as needed. cc: MD Hector Zimmerman MD
[2016-09-23] MEDS: PERCOCET-10 PO PRN ×4 (01:07→19:21)
[2016-09-23] MEDS: DILAUDID IV PRN ×6 (01:07→21:08)
[2016-09-23] MEDS: DUONEB (A & A) INH SCH ×7 (03:47→23:07)
[2016-09-23] MEDS: MERREM 1 GM in NS 50 ML IV SCH ×3 (05:24→21:11)
[2016-09-23] MEDS: LOVENOX SUBQ SCH (05:24)
[2016-09-23 05:50] LABS: ALLEN TEST YES; BE 11.9 mmoll (-3.0-3.0); BLOOD TYPE ARTERIAL; DRAW SITE R RADIAL; METHB 1.1 % (0.0-1.5); O2(CT) 17.4 mL/dL (15.0-23.0); PO2(98.6) 82 mmHg (60-100); SAMPLE BLOOD; SAO2 97.6 % (95.0-100.0); pH(98.6) 7.43 (7.35-7.45)
[2016-09-23 05:52] LABS: MODALITY CANNULA; PCO2(98.6) 58 mmHg (35-45)
[2016-09-23 05:59] LABS: AGAP 8; BUN 9 mg/dL (8-22); CALCIUM 8.8 mg/dL (8.8-10.2); CHLORIDE 95 mmol/L (98-107); COSMO 275; POTASSIUM 3.8 mmol/L (3.5-5.1); SODIUM 138 mmol/L (136-145); TCO2 35 mmol/L (25-35)
[2016-09-23] MEDS: SYNTHROID PO SCH (06:00)
[2016-09-23] MEDS: PRILOSEC PO SCH (06:00)
[2016-09-23 06:47] LABS: MANUAL DIFF NEEDED? NO
[2016-09-23 06:52] LABS: BASO% 0.6 % (0.0-0.8); EOS# 0.13 X1000 (0.0-0.7); HEMATOCRIT 41.4 % (37.0-47.0); HEMOGLOBIN 12.9 g/dL (12.0-16.0); LYMPH# 0.88 X1000 (1.2-3.4); LYMPH% 13.8 % (20.5-51.1); MCH 28.9 PG (27-31); MCHC 31.2 g/dL (33-37); MCV 92.6 FL (81-99); MONO# 0.81 X1000 (0.11-0.59); MONO% 12.7 % (1.7-9.3); MPV 9.3 FL (7.4-10.4); NEUT% 70.9 % (42.2-75.2); PLT 383 X1000 (130-400); RBC 4.47 XMIL (4.2-5.4)
--- NOTE | 2016-09-23 06:57 | PROGRESS NOTE ---
DATE: 09/23/2016 SUBJECTIVE: Patient reports some pain but no major issues. She is off her amiodarone and Pillo- Synephrine. OBJECTIVE: Vital Signs: Patient is currently afebrile. Her vital signs are stable. General Examination: No acute distress. Resting comfortably. Cardiovascular: Regular rate and rhythm. Lungs: Chest tubes in place. Air leak noted to the anterior chest tube. The posterior chest tube has had over 270 out for the last 8 hours, looks like serosanguineous output. Imaging: Chest x-ray is still pending but she still has continued volume loss on the left side. The report from yesterday's chest x-ray was essentially read as stable. ASSESSMENT AND PLAN: A 71-year-old, female, status post left thoracotomy with resection of left upper lobe. Postoperative state. At this time, we will continue to have her chest tubes. Since one has an air leak, we will continue to monitor the output. She has a chest x-ray pending this morning. We will follow up with that but otherwise continue current treatment and respiratory support. cc: MD Hector Shields MD
--- NOTE | 2016-09-23 06:59 | Diag Imaging Result Doc PS360 ---
EXAM: CHEST-1 VIEW HISTORY: SOB TECHNIQUE: Portable 09/22/2016 COMPARISON: None. FINDINGS: No change in the two left-sided chest tubes or in the multiple skin tara. The mediastinum is shifted to the left. There is volume loss to the left lung. No pneumothorax identified. The right lung remains well expanded. IMPRESSION: Stable chest.. Electronically signed by Ihsan Riddle 09/23/2016 6:57 AM
[2016-09-23] MEDS: MUCOMYST 20% INH SCH ×3 (07:32→19:10)
[2016-09-23] MEDS: CORDARONE PO SCH ×2 (08:07→16:23)
[2016-09-23] MEDS: MIRALAX PO SCH (08:07)
[2016-09-23] MEDS: LEVAQUIN 750 MG/D5W 750 MG/150 ML IVPB IV SCH (11:51)
--- NOTE | 2016-09-23 15:02 | PROGRESS NOTE ---
DATE: 09/23/2016 SUBJECTIVE: Patient notes that her pain is actually much better controlled this morning than it was yesterday. Notes that she laid relatively flat last night, has been sitting up most of the morning. Denies any cough. Still states that it hurts to breathe. OBJECTIVE: Vital Signs: Reviewed and stable. Blood pressure stable. Respiratory 22, she is afebrile. General: Patient is awake, alert, oriented. She is sitting up in the bed with the head of bed elevated. HEENT: Normocephalic, atraumatic. Neck: Supple. CV : Regular rate. Chest: Decreased breath sounds throughout the entire left side. Relatively clear on the right. Abdomen: Soft, nondistended. Extremities: Moves all extremities. ASSESSMENT: 1. Atelectasis versus infiltrate left upper lobe likely atelectasis. 2. Status post thoracotomy due to Adenocarcinoma 3. Pain Control 4. Hypertension 5. COPD 6. Hypothyroidism PLAN: Patient seems to be in better pain control today. BP's are more stable. Will continue to follow her COPD and BP. Continue pain control. Attempted to answer any questions. cc: MD Hector Zimmerman MD MTDD
--- NOTE | 2016-09-24 01:51 | PROGRESS NOTE ---
DATE: 09/23/2016 CHIEF COMPLAINT: Irregular heartbeat, incisional pain in the chest. SUBJECTIVE: Ms. Grover feels like she is breathing better. Her heart rate has remained steady. She is not having any significant cough or dyspnea. She has incisional pain. OBJECTIVE: Vital signs: Blood pressure is 127/84. Temperature 98.6. Pulse 84. Respirations 15. General: She is awake, alert, sitting upright in bed, conversant, in good mood. HEENT: Unremarkable. chest: Clear on the right side, left side is diminished. Cardiac: Heart sounds are regular and rhythmic. I do not hear a gallop or murmur. Abdomen: Nontender. Extremities: Showed no edema. Pulses are palpable. Neurologic: Follows commands. Speech is clear. Cranial nerves normal. LABORATORY DATA: Chemistries: Sodium 138, potassium 3.8, BUN normal, creatinine normal. Blood gases today with pH 7.43, pCO2 of 48, pO2 of 82. She is on 4 L. Chest x-ray done today has been already reported by Dr. Riddle, indicating no change in the two left-sided chest tubes or in the multiple skin tara. Mediastinum is shifted to the left. There is volume loss to the left lung. No pneumothorax identified. Stable chest. Telemetry, as I said, shows sinus rhythm. IMPRESSION: 1. Patient with paroxysmal atrial fibrillation that has been controlled with current therapy based on amiodarone. 2. Patient with adenocarcinoma of the left lung status post thoracotomy on September 18. Today would be the fifth postoperative day. 3. History of hypertension. 4. History of chronic obstructive pulmonary disease. RECOMMENDATIONS: From a cardiology viewpoint, I would continue present medical therapy as you are doing. It is okay to transfer to the medical floor at this time. cc: MD Hector Rodriguez MD
[2016-09-24] MEDS: DUONEB (A & A) INH SCH ×6 (03:29→23:45)
[2016-09-24] MEDS: DILAUDID IV PRN ×6 (03:34→20:11)
[2016-09-24] MEDS: PERCOCET-10 PO PRN ×5 (04:39→22:57)
[2016-09-24 05:02] LABS: MANUAL DIFF NEEDED? NO
[2016-09-24 05:07] LABS: ALLEN TEST YES; BE 10.4 mmoll (-3.0-3.0); BLOOD TYPE ARTERIAL; DRAW SITE R RADIAL; METHB 1.2 % (0.0-1.5); O2(CT) 16.5 mL/dL (15.0-23.0); PO2(98.6) 75 mmHg (60-100); SAMPLE BLOOD; SAO2 97.3 % (95.0-100.0); THB 12.4 g/dL (11.5-17.4); pH(98.6) 7.45 (7.35-7.45)
[2016-09-24 05:08] LABS: MODALITY CANNULA
[2016-09-24 05:09] LABS: PCO2(98.6) 52 mmHg (35-45)
[2016-09-24 05:16] LABS: BASO% 1.4 % (0.0-0.8); EOS# 0.22 X1000 (0.0-0.7); EOS% 3.8 % (0.0-10.0); HEMOGLOBIN 12.5 g/dL (12.0-16.0); IMM GRAN# 0.02 X1000 (0.0-0.04); IMM GRAN% 0.3 % (0.0-0.5); LYMPH# 1.59 X1000 (1.2-3.4); LYMPH% 27.7 % (20.5-51.1); MCH 28.7 PG (27-31); MCHC 31.3 g/dL (33-37); MCV 91.7 FL (81-99); MONO# 0.85 X1000 (0.11-0.59); MONO% 14.8 % (1.7-9.3); MPV 9.4 FL (7.4-10.4); PLT 403 X1000 (130-400); RBC 4.36 XMIL (4.2-5.4)
[2016-09-24] MEDS: LOVENOX SUBQ SCH (05:17)
[2016-09-24] MEDS: MERREM 1 GM in NS 50 ML IV SCH ×3 (05:17→23:07)
[2016-09-24 05:30] LABS: AGAP 8; BUN 9 mg/dL (8-22); CALCIUM 8.1 mg/dL (8.8-10.2); CHLORIDE 93 mmol/L (98-107); COSMO 269; POTASSIUM 3.8 mmol/L (3.5-5.1); SODIUM 135 mmol/L (136-145); TCO2 34 mmol/L (25-35)
[2016-09-24] MEDS: PRILOSEC PO SCH (06:17)
[2016-09-24] MEDS: SYNTHROID PO SCH (06:17)
--- NOTE | 2016-09-24 07:18 | Diag Imaging Result Doc PS360 ---
EXAM: CHEST-1 VIEW HISTORY: SOB TECHNIQUE: Portable COMPARISON: 09/23/2016 FINDINGS: No change in the two left-sided chest tubes are in the lateral skin tara. Overall improved aeration and expansion of the left lung compared to prior study. The right lung remains well expanded and clear. Mediastinum is shifted to the left. IMPRESSION: Mild interval improvement.. Electronically signed by Ihsan Riddle 09/24/2016 7:16 AM
[2016-09-24] MEDS: MUCOMYST 20% INH SCH ×2 (07:20→19:30)
[2016-09-24] MEDS: MIRALAX PO SCH (09:14)
[2016-09-24] MEDS: CORDARONE PO SCH ×2 (09:59→17:18)
[2016-09-24] MEDS: LEVAQUIN 750 MG/D5W 750 MG/150 ML IVPB IV SCH (13:10)
[2016-09-25] MEDS: DILAUDID IV PRN ×5 (03:33→21:51)
[2016-09-25] MEDS: DUONEB (A & A) INH SCH ×6 (03:35→23:19)
[2016-09-25] MEDS: PRILOSEC PO SCH ×2 (05:13→06:04)
[2016-09-25] MEDS: PERCOCET-10 PO PRN ×5 (05:14→23:21)
[2016-09-25] MEDS: LOVENOX SUBQ SCH (05:14)
[2016-09-25] MEDS: SYNTHROID PO SCH ×2 (05:14→06:05)
[2016-09-25] MEDS: MERREM 1 GM in NS 50 ML IV SCH ×3 (05:52→21:47)
[2016-09-25] MEDS: MUCOMYST 20% INH SCH ×2 (07:13→19:35)
--- NOTE | 2016-09-25 07:13 | Diag Imaging Result Doc PS360 ---
EXAM: CHEST-1 VIEW HISTORY: SOB TECHNIQUE: AP portable chest at 0500 COMMENT: There is a chest tube on the left. There has been left upper lobectomy. The appearance of the chest has not changed significantly since 09/24/2016. IMPRESSION: Stable chest. Electronically signed by Zaki Tolliver 09/25/2016 7:11 AM
[2016-09-25] MEDS: MIRALAX PO SCH (08:00)
[2016-09-25] MEDS: CORDARONE PO SCH ×2 (08:00→17:28)
[2016-09-25] MEDS ORDERED: MILK OF MAGNESIA PO ONE (11:02)
[2016-09-25] MEDS: LEVAQUIN 750 MG/D5W 750 MG/150 ML IVPB IV SCH (12:45)
[2016-09-26] MEDS: DILAUDID IV PRN ×6 (00:09→22:19)
[2016-09-26] MEDS: DUONEB (A & A) INH SCH ×6 (03:15→22:59)
[2016-09-26] MEDS: PERCOCET-10 PO PRN ×4 (05:05→20:28)
[2016-09-26] MEDS: MERREM 1 GM in NS 50 ML IV SCH ×2 (05:09→13:06)
[2016-09-26] MEDS: LOVENOX SUBQ SCH (05:09)
[2016-09-26] MEDS: PRILOSEC PO SCH ×2 (05:10→06:01)
[2016-09-26] MEDS: SYNTHROID PO SCH ×2 (05:10→06:01)
[2016-09-26 05:29] LABS: MANUAL DIFF NEEDED? NO
[2016-09-26 05:33] LABS: BASO% 0.8 % (0.0-0.8); EOS# 0.35 X1000 (0.0-0.7); HEMATOCRIT 39.7 % (37.0-47.0); HEMOGLOBIN 12.3 g/dL (12.0-16.0); IMM GRAN# 0.03 X1000 (0.0-0.04); IMM GRAN% 0.4 % (0.0-0.5); LYMPH# 1.82 X1000 (1.2-3.4); LYMPH% 25.8 % (20.5-51.1); MCH 28.4 PG (27-31); MCV 91.7 FL (81-99); MONO# 0.86 X1000 (0.11-0.59); MONO% 12.2 % (1.7-9.3); MPV 9.4 FL (7.4-10.4); NEUT% 55.8 % (42.2-75.2); PLT 434 X1000 (130-400); RBC 4.33 XMIL (4.2-5.4)
[2016-09-26 06:03] LABS: AGAP 9; ALBUMIN 2.5 g/dL (3.5-5.0); ALKALINE PHOSPHATASE 69 U/L (32-104); BUN 10 mg/dL (8-22); CALCIUM 7.9 mg/dL (8.8-10.2); CHLORIDE 96 mmol/L (98-107); COSMO 275; GOT 13 U/L (10-30); GPT 6 U/L (10-36); MAGNESIUM 2.4 mg/dL (1.5-2.7); POTASSIUM 4.1 mmol/L (3.5-5.1); SODIUM 138 mmol/L (136-145); TCO2 33 mmol/L (25-35); TOTAL BILIRUBIN 0.18 mg/dL (0.20-1.00); TOTAL PROTEIN 5.4 g/dL (6.3-8.3)
--- NOTE | 2016-09-26 07:20 | Diag Imaging Result Doc PS360 ---
EXAM: CHEST-1 VIEW HISTORY: SOB TECHNIQUE: Portable chest COMPARISON: 09/25/2016 FINDINGS: There is one left-sided chest tube and there are lateral left skin tara. No pneumothorax. Mediastinum is shifted from the right to the left. The heart is not enlarged. Left hemidiaphragm is elevated. Markings in the left lung appears somewhat less pronounced than on the prior exam, particularly in the base. Right lung remains well expanded and clear. IMPRESSION: Mild interval improvement.. Electronically signed by Ihsan Riddle 09/26/2016 7:18 AM
[2016-09-26] MEDS ORDERED: MILK OF MAGNESIA PO ONE (07:22)
[2016-09-26] MEDS: MUCOMYST 20% INH SCH ×2 (07:23→19:20)
[2016-09-26] MEDS: CORDARONE PO SCH ×3 (07:58→16:01)
[2016-09-26] MEDS: MIRALAX PO SCH ×2 (07:58→11:11)
[2016-09-26] MEDS: LEVAQUIN PO SCH ×2 (07:58→11:11)
[2016-09-27] MEDS: PERCOCET-10 PO PRN ×6 (01:51→23:23)
[2016-09-27] MEDS: DUONEB (A & A) INH SCH ×6 (03:05→23:22)
[2016-09-27] MEDS: PRILOSEC PO SCH ×2 (05:50→06:12)
[2016-09-27] MEDS: SYNTHROID PO SCH ×2 (05:51→06:12)
[2016-09-27] MEDS: LOVENOX SUBQ SCH (05:51)
[2016-09-27] MEDS ORDERED: MILK OF MAGNESIA PO ONE (07:10)
--- NOTE | 2016-09-27 07:20 | Diag Imaging Result Doc PS360 ---
EXAM: CHEST-1 VIEW INDICATION: SOB TECHNIQUE: One view COMPARISON: 09/26/2016 FINDINGS: Left chest tube is in stable position. No definite pneumothorax can be identified by plain radiograph. The increased lung markings at the left lower lung zone are essentially stable and there is stable volume loss on the left. No new consolidations are appreciated. Cardiac silhouette is stable. IMPRESSION: Essentially stable chest. Electronically signed by Song Ramirez 09/27/2016 7:18 AM
[2016-09-27] MEDS: DILAUDID IV PRN (07:49)
[2016-09-27] MEDS: MUCOMYST 20% INH SCH ×2 (07:52→19:13)
[2016-09-27] MEDS ORDERED: DULCOLAX PR ONE (08:45)
[2016-09-27] MEDS: LEVAQUIN PO SCH (09:58)
[2016-09-27] MEDS: CORDARONE PO SCH ×2 (09:58→16:44)
[2016-09-27] MEDS: MIRALAX PO SCH (09:59)
[2016-09-28] MEDS: DUONEB (A & A) INH SCH ×2 (02:55→08:11)
[2016-09-28] MEDS: PERCOCET-10 PO PRN ×3 (03:26→11:06)
[2016-09-28] MEDS: LOVENOX SUBQ SCH (06:03)
[2016-09-28] MEDS: SYNTHROID PO SCH (06:03)
[2016-09-28] MEDS: PRILOSEC PO SCH (06:03)
--- NOTE | 2016-09-28 07:38 | Diag Imaging Result Doc PS360 ---
EXAM: CHEST-2 VIEWS HISTORY: abnormal exam TECHNIQUE: AP and lateral chest COMMENT: There are postsurgical changes on the left with surgical skin clips and surgical clips near the left hilum. There is volume loss on the left. There are bilateral pleural effusions. There is an air-fluid level anteriorly in the left hemithorax. The chest tube which was present on 09/27/2016 has been removed. Some improvement in the atelectasis over the left lower lung field has taken place since the previous study. IMPRESSION: Slightly improved left atelectasis. Residual hydropneumothorax anteriorly on the left. Electronically signed by Zaki Tolliver 09/28/2016 7:36 AM
[2016-09-28 07:53] VITALS: BP 125/82
[2016-09-28] MEDS: MUCOMYST 20% INH SCH (08:11)
[2016-09-28] MEDS: LEVAQUIN PO SCH (08:22)
[2016-09-28] MEDS: CORDARONE PO SCH (08:23)
[2016-09-28] MEDS: MIRALAX PO SCH (08:24)
--- NOTE | 2016-10-13 16:47 | DISCHARGE SUMMARY ---
ADMISSION DATE: 09/18/2016 DISCHARGE DATE: 09/28/2016 PRIMARY DISCHARGE DIAGNOSES: 1. Adenocarcinoma of the left upper lobe. 2. Acute postoperative respiratory failure. 3. Chronic obstructive pulmonary disease. 4. Tobacco dependence. 5. Atrial fibrillation with rapid ventricular rate. 6. History of arthritis. PRIMARY PROCEDURES: A left thoracotomy and left upper lobectomy. HOSPITAL COURSE: This is a 71-year-old lady who had tried to avoid surgery but finally realized that this was going to be the best course for her, so she agreed to thoracotomy. She was admitted on 09/18/2016 and underwent the procedure. She was sent to the Intensive Care Unit on the ventilator postop. Dr. Ochoa is her medical doctor, and we asked him to see her and follow along. Dr. Ji saw her for her respiratory failure, and she developed atrial fibrillation with rapid ventricular rate. Cardiology was consulted and Dr. Sahh saw her for that. We had cardiology consult on 09/19/2016 and she was started on IV amiodarone. She was continued on metoprolol to control her heart rate. She was extubated by the second postoperative day. We gave her a diet, and we decreased her IV rate. We continued with good pulmonary toilet. We kept her chest tube in because of a small air leak by the 3rd postoperative day. We removed the anterior chest tube by the 6th postoperative day. We transferred her out of the unit. We removed her Vitale on the 7th postoperative day. We gave her some Milk of Magnesia for her bowels. She had been placed on meropenem because of the possibility of pneumonia. This was discontinued on 09/25/2016, and she was placed on p.o. Levaquin. We removed her remaining chest tube on the 8th postoperative day, which she tolerated well. By , she was afebrile, tolerating solid food. Her O2 saturation was 85% on room air. So, it became evident she would continue with home oxygen which she already had at home. She does want a walker to help her because of her weakness, and it is felt she could be discharged home on 09/28/2016. She will return to the office in 5 days in followup. She will resume her usual home medications. She was discharged home on Levaquin for a few more days at home. She was given oxycodone, and she was given amiodarone. She is to continue with her other home medications include Synthroid, Crestor, and diclofenac. She will return to the office in followup and for staple removal. cc: MD Charanjit Luciano MD
== END 2016-09-28 11:17 | disposition home health service (06) ==
LOC: OR 10:58 → ICU 10:58 → OBSVTOIN 16:46 → 4N 09-24 12:40
PROVIDERS: ADMIT Surgery; ATTEND Surgery